=== PATIENT | female | born 1950 | race Caucasian/White ===

== ENCOUNTER → 2016-07-23 | Outpatient (CLI) | payer MEDICARE, OTHER ==
[~2016-07-23] MED LIST: AMILORIDE/HCTZ1 TAB PO; ARTHROTEC 775 MG/TAB PO; CIPRO 500MG TA500 MG PO; LIPITOR20 MG PO; LOMOTIL 0.025 M1 TAB PO; MIDAMOR 5MG TAB5 MG PO; PROTONIX 40MG T40 MG PO; SYNTHROID0.125 MG/T PO; ULTRAM 50MG TAB50 MG PO; VITAMIN D1000 IU PO
== END ==
LOC: MC.RAD 14:17
DX: Z12.31 Encounter for screening mammogram for malignant neoplasm of breast (principal); D24.1 Benign neoplasm of right breast

== ENCOUNTER → 2017-08-23 | Outpatient (CLI) | payer MEDICARE, OTHER | LOC: MC.RAD 13:20 | DX: Z12.31 Encounter for screening mammogram for malignant neoplasm of breast (principal) ==

== ENCOUNTER → 2018-08-21 | Outpatient (CLI) | payer MEDICARE, OTHER | LOC: MC.RAD 14:02 | DX: Z12.31 Encounter for screening mammogram for malignant neoplasm of breast (principal) ==

== ENCOUNTER → 2019-12-24 | Outpatient (CLI) | payer MEDICARE ==
[~2019-12-24] MED LIST changes: +VALIUM 5MG T5 MG/TAB PO; +ZOCOR 20MG20 MG PO
== END ==
LOC: MC.RAD 13:51
DX: Z12.31 Encounter for screening mammogram for malignant neoplasm of breast (principal)

== ENCOUNTER → 2021-11-15 | Outpatient (CLI) | payer MEDICARE | LOC: COL.RAD 13:30 | DX: Z12.2 Encounter for screening for malignant neoplasm of respiratory organs (principal); Z87.891 Personal history of nicotine dependence ==